=== PATIENT | female | born 1960 | race Caucasian/White ===

== ENCOUNTER 2023-01-29 06:00 | Day surgery (SDC) | payer BC ==
[2023-01-21 14:37] VITALS: BMI 30.2
[2023-01-29] MEDS ORDERED: Iopamidol 0 ML ONE (07:05)
[2023-01-29] MEDS ORDERED: Fentanyl 250 MCG/5 ML VIAL ONE (07:12)
[2023-01-29] MEDS ORDERED: SUGAMMADEX SODIUM 200 MG/2 ML VIAL ONE (07:13)
[2023-01-29] MEDS ORDERED: LevoFLOXacin 500 mg/D5W 100 ML BAG ONE (07:37)
[2023-01-29] MEDS ORDERED: fentaNYL PF 100 MCG/2 ML SYRINGE ONE (08:37)
[2023-01-29] MEDS ORDERED: Midazolam HCl 2 mg/2 ml Vial ONE (08:37)
[2023-01-29] MEDS ORDERED: fentaNYL 50 mcg/mL 1 mL Vial ONE (08:37)
[2023-01-29] MEDS ORDERED: Esmolol 100 MG/10 ML VIAL ONE (08:39)
[2023-01-29] MEDS ORDERED: Dexamethasone 20 MG/5 ML VIAL ONE (08:39)
[2023-01-29] MEDS ORDERED: Ondansetron PF 4 MG/2 ML Vial ONE (08:39)
[2023-01-29] MEDS ORDERED: Ketorolac Tromethamine 30 MG/ML VIAL ONE (08:39)
[2023-01-29] MEDS ORDERED: Lidocaine 1% PF 5 ML VIAL ONE (08:39)
[2023-01-29] MEDS ORDERED: PROPOFOL 200 MG/20 ML VIAL ONE (08:39)
== END 2023-01-29 12:00 | disposition home or self-care (01) ==
LOC: SDC 06:00
PROVIDERS: ATTEND Urology
PROC: 0TF68ZZ Fragmentation in Right Ureter, Via Natural or Artificial Opening Endoscopic (ICD-10-PCS; principal; 2023-01-29)
PROC: 0TF48ZZ Fragmentation in Left Kidney Pelvis, Via Natural or Artificial Opening Endoscopic (ICD-10-PCS; principal; 2023-01-29)
DX: N20.2 Calculus of kidney with calculus of ureter (principal); G47.30 Sleep apnea, unspecified; Z79.899 Other long term (current) drug therapy
CPT/HCPCS: 82365; 88300; C1713; C1747; C1769; C2617; J1100; J1885; J1956; J2250; J2405; J2704; J3010; Q9967